=== PATIENT | male | born 1965 | race Caucasian/White ===

== ENCOUNTER 2018-09-24 08:46 | Outpatient (CLI) | payer MEDICAID ==
[2018-09-24 14:42] LABS: BASOPHILS # (AUTO) 0.1 10^3/uL (0.0-0.1); BASOPHILS % (AUTO) 1.6 %; EOSINOPHILS # (AUTO) 0.3 10^3/uL (0.0-0.7); EOSINOPHILS % (AUTO) 3.3 %; HGB - HEMOGLOBIN 16.6 g/dL (14.0-18.0); LYMPHOCYTES # (AUTO) 2.5 10^3/uL (1.5-3.5); MEAN CORPUSCULAR HEMOGLOBIN 28.6 pg (27.0-31.0); MEAN CORPUSCULAR VOLUME 81.6 fL (80.0-94.0); MONOCYTES # (AUTO) 0.7 10^3/uL (0.0-1.0); NEUTROPHILS # (AUTO) 5.2 10^3/uL (1.5-6.6); NEUTROPHILS % (AUTO) 59.1 %; PLT - PLATELET COUNT 290 10^3/uL (130-450); RED BLOOD COUNT 5.82 10^6/uL (4.70-6.10); WHITE BLOOD COUNT 8.8 x10^3/uL (4.8-10.8)
[2018-09-24 15:08] LABS: CALCIUM 8.5 mg/dL (8.5-10.3); CARBON DIOXIDE - CO2 24 mmol/L (21-32); CHLORIDE 103 mmol/L (101-111); GLUCOSE 208 mg/dL (70-100); SODIUM 137 mmol/L (135-145)
[2018-09-24 15:30] LABS: THYROID STIMULATING HORMONE 2.54 uIU/mL (0.34-5.60)
[2018-09-24 15:42] LABS: FOLATE 11.07 ng/mL (5.90 - >24.8)
[2018-09-24 16:24] LABS: ALBUMIN/GLOBULIN RATIO 1.1 (1.0-2.2); ALKALINE PHOSPHATASE 77 IU/L (42-121); ALT ALANINE AMINOTRANSFERASE 67 IU/L (10-60); AST ASPARTATE AMINOTRANSFERASE 37 IU/L (10-42); BILIRUBIN,TOTAL 0.6 mg/dL (0.2-1.0); BUN - BLOOD UREA NITROGEN 14 mg/dL (6-20); CHOL/HDL RATIO 9.2 (<5.0); CHOLESTEROL 267 mg/dL; CREATININE 0.9 mg/dL (0.6-1.2); GFR - MDRD 88 (>89); HDL CHOLESTEROL 29 mg/dL; TOTAL PROTEIN 7.8 g/dL (6.7-8.2)
[2018-09-24 17:12] LABS: LDL CHOLESTEROL,DIRECT 145 mg/dL
== END 2018-09-24 23:59 | disposition home or self-care (01) ==
LOC: LAB.N 08:46
PROVIDERS: ATTEND Nurse Practitioner
DX: I10 Essential (primary) hypertension (principal); E55.9 Vitamin D deficiency, unspecified; R53.83 Other fatigue
CPT/HCPCS: 36415; 80050; 80061; 82306; 82607; 82746; 83721

== ENCOUNTER 2019-03-31 22:37 | Emergency (ER) | payer MEDICAID ==
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
[2019-03-31] MEDS ORDERED: ACETAMINOPHEN 325 MG TABLET PO STA (23:06)
--- NOTE | 2019-04-01 00:08 | XRAY Report ---
Reason: pain and swelling from fall Procedure Date: 03/31/2019 Accession Number: [id number] / [id number] Procedure: XR - Elbow 3 View RT CPT Code: FULL RESULT: EXAM: RIGHT ELBOW RADIOGRAPHY EXAM DATE: 03/31/2019 11:52 PM. CLINICAL HISTORY: Pain and swelling from fall. COMPARISON: None. TECHNIQUE: 3 views. FINDINGS: Bones: There is an intra-articular fracture involving the olecranon process with up to 2.6 cm of displacement of the proximal fracture fragment. Additional nondisplaced fracture components are seen extending into the ulnar shaft. There is also a nondisplaced intra-articular radial head fracture. Joints: No subluxation. Joint effusion present. Soft Tissues: Soft tissue swelling posteriorly. IMPRESSION: 1. Nondisplaced intra-articular radial head fracture. 2. Intra-articular olecranon process fracture with up to 2.6 cm of fracture fragment separation. RADIA
[2019-04-01] MEDS ORDERED: SODIUM CHLORIDE 0.9% 1,000 ML IV ONE (00:25)
[2019-04-01] MEDS ORDERED: ONDANSETRON 4 MG/2 ML VIAL IVP STA (00:50)
[2019-04-01] MEDS ORDERED: HYDROmorphone 1 MG/ML CARPUJECT IVP STA (00:50)
[2019-04-01 03:49] VITALS: BP 163/100
== END 2019-04-01 03:21 | disposition home or self-care (01) ==
LOC: ED 22:37
DX: S52.031A Displaced fracture of olecranon process with intraarticular extension of right ulna, initial encounter for closed fracture (principal); S52.124A Nondisplaced fracture of head of right radius, initial encounter for closed fracture; S80.211A Abrasion, right knee, initial encounter; S80.01XA Contusion of right knee, initial encounter; S50.812A Abrasion of left forearm, initial encounter; V18.0XXA Pedal cycle driver injured in noncollision transport accident in nontraffic accident, initial encounter; Y93.55 Activity, bike riding; Y92.830 Public park as the place of occurrence of the external cause; I25.10 Atherosclerotic heart disease of native coronary artery without angina pectoris; I10 Essential (primary) hypertension
CPT/HCPCS: 29105; 73080; 96361; 96374; 99283; 99284; A9270; J1170; 80048; 85025

== ENCOUNTER 2019-04-13 10:24 | Outpatient (CLI) | payer MEDICAID | END 2019-04-13 10:25 | disposition short-term general hospital (02) | LOC: EMS 10:24 | PROVIDERS: ATTEND Surgery | DX: R42 Dizziness and giddiness (principal) | CPT/HCPCS: A0425; A0429; A0888; A0999 ==

== ENCOUNTER 2019-04-21 10:38 | Outpatient (CLI) | payer MEDICAID ==
--- NOTE | 2019-04-22 12:13 | CT Report ---
Reason: DISPLACED FRACTURE OF HEAD OF RIGHT RADIUS, DISPLA Procedure Date: 04/21/2019 Accession Number: [id number] / [id number] Procedure: CT - UPPER EXTREMITY WO - RT CPT Code: FULL RESULT: EXAM: RIGHT ELBOW CT WITHOUT CONTRAST EXAM DATE: 04/21/2019 11:10 AM. CLINICAL HISTORY: Displaced fracture of head of right radius. COMPARISON: ELBOW 3 VIEW RT 03/31/2019 11:35 PM. TECHNIQUE: Thin-section axial images were acquired of the elbow without contrast. Post-processing: Coronal and sagittal reformats. Other: None. In accordance with CT protocol optimization, one or more of the following dose reduction techniques were utilized for this exam: automated exposure control, adjustment of mA and/or KV based on patient size, or use of iterative reconstructive technique. FINDINGS: Bones and articular surfaces: Comminuted intra-articular fracture of the radial head. A large segment of the central and posterior articular surface of the radial head is displaced posteriorly. 2 main fragments posterior to the capitellum appear to represent displaced articular surface fragments. The largest measures approximately 10 x 10 x 2.5 mm. The smaller fragment approximately 4.5 x 6.0 x 2 mm. Otherwise radial head appears normally aligned with the capitellum. Comminuted fracture of the proximal ulna. The proximal aspect of the olecranon process is fractured and displaced proximally approximately 2.7 cm. Additional nondisplaced oblique fracture courses distally from the olecranon fracture exiting the anterior cortex of the proximal ulna approximately 3.3 cm distal to the tip of the coronoid process. Large elbow joint effusion. Musculotendinous structures: Visualized musculotendinous structures appear grossly intact. No muscle atrophy or fatty replacement. IMPRESSION: 1. Comminuted intra-articular radial head fracture with posterior displacement of large segments of the articular surface. 2. Comminuted fracture of the proximal ulna with proximal displacement of the olecranon fragment approximately 2.7 cm. RADIA
== END 2019-04-21 10:39 | disposition home or self-care (01) ==
LOC: DI 10:38
PROVIDERS: ATTEND Orthopaedic Surgery Sports Medicine
DX: S52.121A Displaced fracture of head of right radius, initial encounter for closed fracture (principal); S52.021A Displaced fracture of olecranon process without intraarticular extension of right ulna, initial encounter for closed fracture

== ENCOUNTER 2019-09-06 08:00 | Outpatient (CLI) | payer MEDICAID ==
[2019-09-06 12:51] LABS: CALCIUM 8.8 mg/dL (8.5-10.3); CREATININE 1.1 mg/dL (0.6-1.2)
[2019-09-06 13:04] LABS: CREATININE,URINE 331.2 mg/dL; MICROALBUM/CREATININE RATIO,UR 160.9 ug/mg (<30.0); MICROALBUMIN,URINE 53.3 mg/dL (0-300.0)
[2019-09-06 13:11] LABS: HB2 TOTAL 15.8 g/dL; HEMOGLOBIN A1C 0.92 g/dL; HEMOGLOBIN A1C % 7.5 % (4.6-6.2)
== END 2019-09-06 23:59 ==
LOC: LAB.N 08:00
PROVIDERS: ATTEND Family Medicine
DX: E11.9 Type 2 diabetes mellitus without complications (principal)
CPT/HCPCS: 36415; 80048; 82043; 82570; 83036

== ENCOUNTER 2019-10-03 13:46 | Outpatient (CLI) | payer MEDICAID ==
--- NOTE | 2019-10-03 16:09 | SLEEP CARE CONSULTATION ---
Information from patient questionnaire entered by Alyssa Rogers. I have reviewed and concur with the information entered by Alyssa Rogers. This document represents the service I personally performed and the decisions made by me, Ira Munoz MD, [facility]. History of Present Illness Reason for Visit: New patient Chief Complaint: reports: Fatigue, Other (checking to see if sleep is ok) Duration of Symptoms: on/off for a year or so Usual bedtime: 2300 Time it takes to fall asleep: 20-30 minutes Snores at night: Yes (sometimes) Observed to quit breathing while asleep: No Sleeps alone due to snoring: No Number of times waking at night: 1 Reasons for waking at night: reports: Bathroom Toss, Turn, or Twitch while sleeping: No Recalls having dreams: Yes Usually gets out of bed at: 0700 Feels refreshed in the morning: Yes Morning headache: No Sleepy or fatigued during the day: No (once in a while) Ever fallen asleep while driving: No Takes day naps: Yes Dreams during day naps: Yes Prior sleep studies: No Additional HPI information: I had the pleasure of seeing Mr. Vences today regarding the possibility of him having a sleep disorder. As you know, he is a 54 year old gentleman who complains of fatigue for about a year. The patient tells me that he normally goes to bed around 11 pm, and it takes him approximately 20 - 30 minutes to fall asleep. He snores occasionally. He has never been observed to stop breathing in his sleep. However, he sleeps alone. He can recall waking up on the average of 1 time during the night. Most of the time he wakes up because of having to use the bathroom. He has never awakened occasionally because of his own snoring, choking, or having to gasp for air. There is not a lot of tossing and turning in his sleep. No somniloquy (sleep talking) or somnambulism (sleep walking). Generally he can recall having dreams. In the morning he usually gets up out of the bed around 7 a.m. feeling refreshed and rested. He usually does not have a morning headache. During the day he does not feel sleepy. His score on [place] Sleepiness Scale is 11 out of 24. He has never fallen asleep while driving nor has had any accident due to sleepiness. He usually takes naps during the day. Upon falling asleep during the day he reports having dreams. He has never had sleep paralysis, experienced cataplexy or symptoms of restless leg syndrome. He reports having impaired concentration during the day. Subjective Initial [place] Sleepiness Scale score: 11 Past Medical History Past Medical History: reports: Hypertension, Coronary Heart Disease (s/p CABG), Other (double bypass may 2019) Social History The patient is not employed. Patient is Single and lives in [place]. Have you smoked in the past 12 months: No Alcohol use: Yes Alcohol amount and frequency: 1-2 Sat-Sun Caffeine use: Yes Caffeine amount and frequency: 1-2 cups/day Family History Family history of sleep disordered breathing: No Allergies and Home Medications Drug allergies reviewed: Yes Home medication list reviewed: Yes Allergy and home medication list: Meds: carvedilol, amlodipine, metformin, aspirin Allergies: penicillins Review of Systems Weight gain over past 5 years: 20 Weight loss over past 5 years: 20 Cardiovascular: reports: high blood pressure, have to sleep sitting up Respiratory: reports: shortness of breath Gastrointestinal: reports: heartburn, diarrhea Urinary: denies: incontinence, frequency, urgency, impotence, other Neurological: reports: headaches, head trauma, disorientation Psychiatric: reports: Attention Deficit Hyperactivity, anxiety, depression, mood disorder Ear/Nose/Throat: reports: injury to nose, wisdom teeth removed Endocrine: denies: thyroid disease, history of goiter, sluggishness, too hot or cold, excessive thirst, increased appetite, increased urination, unexplained weakness, other Musculoskeletal: reports: joint pain, neck pain, back pain, muscle pain or cramping, mobility problems Immunologic: reports: sneezing, rash, itching Physical Exam Vital signs obtained and entered by: Dr. Munoz Blood Pressure: 160/100 Cuff size: regular Heart Rate: 73 O2 Saturation: 99 Height: 5 ft 7 in Weight: 196 lb Body Mass Index: 30.7 BMI Classification: Obesity Class 1 Neck circumference: 16.5 Mood/affect: normal HEENT: No craniofacial malformation Nostrils: patent to airflow Turbinates: normal Septum: deviated right Mouth and throat: narrow oropharynx Soft palate: long Hard palate: normal Uvula: normal Uvula visualization: 50% Mallampati Class II Tongue: normal in size Tonsils: small Chin and jaw: normal size and position Neck: normal w/o lymphadenopathy or thyromegaly Heart: regular rate and rhythm Lungs: clear bilaterally Abdomen: soft, non-tender Extremities: no edema or clubbing Neurologic: intact, no focal deficits Impression and Plan IMPRESSION: 1. Obstructive Sleep Apnea-Hypopnea Syndrome, as suggested by history of loud snoring and fatigue. Narrow oropharynx and obesity are common predisposing factors for obstructive sleep apnea-hypopnea syndrome. The patient also has hypertension and ischemic heart disease, both of which can be worsened by untreated obstructive sleep apnea-hypopnea. Pathophysiology of sleep-disordered breathing was discussed. I recommend proceeding to polysomnography to confirm the diagnosis and to assess severity. If he has significant sleep disordered breathing, a manual CPAP titration study will also be performed to find the optimal treatment pressure. I informed the patient of what the sleep studies involve and after some discussion, he agreed to proceed. Plan: 1. Schedule polysomnography + manual CPAP titration study 2. Avoid long distance driving or when feeling sleepy. 3. Avoid alcohol, sedative and muscle relaxant around bedtime. 4. Attempt to lose weight. 5. Return in 1 to 2 weeks after the study to discuss results and initiate therapy. I spent 100% of this visit face to face with the patient with greater than 50% of this was spent time counseling the patient and coordination of care.
[2019-10-03 16:10] VITALS: BP 160/100
== END 2019-10-03 13:47 | disposition home or self-care (01) ==
LOC: SC 13:46
PROVIDERS: ATTEND Internal Medicine Pulmonary Disease
DX: R06.83 Snoring (principal); R53.83 Other fatigue; I25.9 Chronic ischemic heart disease, unspecified; I10 Essential (primary) hypertension; E66.9 Obesity, unspecified; Z68.30 Body mass index [BMI] 30.0-30.9, adult
CPT/HCPCS: 99203; 99212

== ENCOUNTER 2019-10-12 20:42 | Outpatient (CLI) | payer MEDICAID | END 2019-10-12 20:43 | disposition home or self-care (01) | LOC: SC 20:42 | PROVIDERS: ATTEND Internal Medicine Pulmonary Disease | DX: G47.33 Obstructive sleep apnea (adult) (pediatric) (principal); G47.61 Periodic limb movement disorder; E66.9 Obesity, unspecified; Z68.30 Body mass index [BMI] 30.0-30.9, adult | CPT/HCPCS: 95810 ==

== ENCOUNTER 2019-11-07 13:07 | Outpatient (CLI) | payer MEDICAID ==
--- NOTE | 2019-11-07 13:47 | SLEEP CARE CONSULTATION ---
Information from patient questionnaire entered by Alyssa Rogers. I have reviewed and concur with the information entered by Alyssa Rogers. This document represents the service I personally performed and the decisions made by me, Ira Munoz MD, [facility]. History of Present Illness Initial [place] Sleepiness Scale score: 11 Current [place] Sleepiness Scale score: 9 Additional HPI information: HPI: Mr. Vences returned for follow up of the sleep study he had on 10/12/2019. The polysomnography showed that the patient had poor sleep efficiency due to two prolonged awakenings after the sleep onset. The sleep architecture was abnormal for sleep fragmentation and reduced amount of time spent in slow wave sleep (N3). Respiratory monitoring showed mild obstructive sleep apnea-hypopnea (AHI = 6.2) associated with frequent arousals, oxyhemoglobin desaturation and mild hypoxia (andrés oxygen saturation of 87%). The patient did not sleep supine during this study (supine AHI = 0.0; non-supine = 6.22). Snore was light in intensity. There was moderate periodic leg movement of sleep not contributing to the sleep fragmentation. Cardiac rhythm was normal sinus rhythm without significant arrhythmia. No abnormal behavior (parasomnia) observed during the night. The patient was informed of these findings. I explained to him the pathophysiology behind obstructive sleep apnea. We then spent quite a bit of time discussing different treatment options. For mild obstructive sleep apnea, surgery and oral appliance are alternatives to nasal CPAP therapy but in moderate or severe cases, nasal CPAP is the most effective and reliable treatment. Weight loss in an obese individual is strongly recommended. After some discussion, he opted to go with the nasal CPAP therapy. I explained to him how CPAP machine works and what to expect when using the machine. He is encouraged to use CPAP every night especially in the first 2 to 3 nights in order to get used to it. He should call his CPAP supplier or me to discuss any mechanical problem that may occur. If he snores or feels like he is not getting enough air from the machine, he should notify me and I will increase the pressure. Allergies and Home Medications Drug allergies reviewed: Yes Home medication list reviewed: Yes Review of Systems Review of systems same as previous: Yes Physical Exam Height: 5 ft 7 in Weight: 199 lb Body Mass Index: 31.1 BMI Classification: Obese Impression and Plan IMPRESSION: 1. Obstructive Sleep Apnea-Hypopnea Syndrome, mild, associated with mild hypoxemia and sleep fragmentation. Possibly, this is the cause of the patients symptoms of unrefreshed sleep, and excessive daytime sleepiness. As mentioned above, the patient will be started on an autoCPAP set at 5 - 15 cmH2O. Depending on his response and compliance he may be brought back for an overnight CPAP titration study. PLAN: 1. Prescription made for an autoCPAP, heated humidifier, and related supplies. 2. Attempt to lose weight and avoid alcohol consumption near bedtime. 3. The patient is again cautioned about driving until his sleepiness completely resolves on the CPAP therapy. I spent 100% of this visit face to face with the patient with greater than 50% of this was spent time counseling the patient and coordination of care.
== END 2019-11-07 13:08 | disposition home or self-care (01) ==
LOC: SC 13:07
PROVIDERS: ATTEND Internal Medicine Pulmonary Disease
DX: G47.33 Obstructive sleep apnea (adult) (pediatric) (principal); E66.9 Obesity, unspecified; Z68.31 Body mass index [BMI] 31.0-31.9, adult
CPT/HCPCS: 99212; 99213

== ENCOUNTER 2020-03-13 13:47 | Outpatient (CLI) | payer MEDICAID ==
[2020-03-13 18:29] LABS: BASOPHILS # (AUTO) 0.1 10^3/uL (0.0-0.1); BASOPHILS % (AUTO) 1.1 %; EOSINOPHILS # (AUTO) 0.3 10^3/uL (0.0-0.7); EOSINOPHILS % (AUTO) 2.4 %; HGB - HEMOGLOBIN 14.7 g/dL (14.0-18.0); LYMPHOCYTES # (AUTO) 2.8 10^3/uL (1.5-3.5); LYMPHOCYTES % (AUTO) 26.3 %; MEAN CORPUSCULAR HEMOGLOBIN 27.6 pg (27.0-31.0); MEAN CORPUSCULAR HGB CONC 32.5 g/dL (32.0-36.0); MEAN CORPUSCULAR VOLUME 84.8 fL (80.0-94.0); MEAN PLATELET VOLUME 9.9 fL (7.4-11.4); MONOCYTES # (AUTO) 0.9 10^3/uL (0.0-1.0); MONOCYTES % (AUTO) 8.3 %; NEUTROPHILS # (AUTO) 6.5 10^3/uL (1.5-6.6); NEUTROPHILS % (AUTO) 61.5 %; PLT - PLATELET COUNT 302 10^3/uL (130-450); RED BLOOD COUNT 5.33 10^6/uL (4.70-6.10); RED CELL DISTRIBUTION WIDTH 13.8 % (12.0-15.0); WHITE BLOOD COUNT 10.6 x10^3/uL (4.8-10.8)
[2020-03-13 18:58] LABS: HB2 TOTAL 15.3 g/dL; HEMOGLOBIN A1C 0.96 g/dL; HEMOGLOBIN A1C % 7.9 % (4.6-6.2)
[2020-03-13 19:01] LABS: ALBUMIN 4.2 g/dL (3.2-5.5); ALBUMIN/GLOBULIN RATIO 1.4 (1.0-2.2); ALKALINE PHOSPHATASE 58 IU/L (42-121); ALT ALANINE AMINOTRANSFERASE 44 IU/L (10-60); AST ASPARTATE AMINOTRANSFERASE 27 IU/L (10-42); BILIRUBIN,TOTAL 0.4 mg/dL (0.2-1.0); BUN - BLOOD UREA NITROGEN 23 mg/dL (6-20); CARBON DIOXIDE - CO2 26 mmol/L (21-32); CHLORIDE 101 mmol/L (101-111); CHOL/HDL RATIO 7.9 (<5.0); CHOLESTEROL 238 mg/dL; CREATININE 1.3 mg/dL (0.6-1.2); GLUCOSE 184 mg/dL (70-100); HDL CHOLESTEROL 30 mg/dL; SODIUM 136 mmol/L (135-145); TOTAL PROTEIN 7.2 g/dL (6.7-8.2)
[2020-03-13 19:38] LABS: CREATININE,URINE 274.5 mg/dL; MICROALBUM/CREATININE RATIO,UR 104.9 ug/mg (<30.0); MICROALBUMIN,URINE 28.8 mg/dL (0-300.0)
[2020-03-13 19:40] LABS: LDL CHOLESTEROL,DIRECT 127 mg/dL; LDLD/HDL RATIO 4.2 (<3.6)
== END 2020-03-13 23:59 | disposition home or self-care (01) ==
LOC: LAB.WCP 13:47
PROVIDERS: ATTEND Family Medicine
DX: E11.9 Type 2 diabetes mellitus without complications (principal); I10 Essential (primary) hypertension; E78.2 Mixed hyperlipidemia
CPT/HCPCS: 36415; 80053; 80061; 82043; 82570; 83036; 83721; 85025

== ENCOUNTER 2020-04-27 14:00 | Outpatient (CLI) | payer MEDICAID | END 2020-04-27 23:59 | disposition home or self-care (01) | LOC: LAB.R 14:00 | PROVIDERS: ATTEND Family Medicine | DX: R32 Unspecified urinary incontinence (principal) | CPT/HCPCS: 87086 ==

== ENCOUNTER 2020-10-05 11:39 | Outpatient (CLI) | payer MEDICAID ==
[2020-10-05 18:48] LABS: BASOPHILS # (AUTO) 0.1 10^3/uL (0.0-0.1); BASOPHILS % (AUTO) 1.4 %; EOSINOPHILS # (AUTO) 0.3 10^3/uL (0.0-0.7); EOSINOPHILS % (AUTO) 3.3 %; HGB - HEMOGLOBIN 16.6 g/dL (14.0-18.0); LYMPHOCYTES # (AUTO) 2.6 10^3/uL (1.5-3.5); LYMPHOCYTES % (AUTO) 30.3 %; MEAN CORPUSCULAR HEMOGLOBIN 28.5 pg (27.0-31.0); MEAN CORPUSCULAR HGB CONC 33.7 g/dL (32.0-36.0); MEAN CORPUSCULAR VOLUME 84.4 fL (80.0-94.0); MEAN PLATELET VOLUME 10.1 fL (7.4-11.4); MONOCYTES # (AUTO) 0.7 10^3/uL (0.0-1.0); NEUTROPHILS # (AUTO) 4.8 10^3/uL (1.5-6.6); NEUTROPHILS % (AUTO) 56.5 %; PLT - PLATELET COUNT 272 10^3/uL (130-450); RED BLOOD COUNT 5.83 10^6/uL (4.70-6.10); RED CELL DISTRIBUTION WIDTH 13.5 % (12.0-15.0); WHITE BLOOD COUNT 8.5 x10^3/uL (4.8-10.8)
[2020-10-05 19:05] LABS: ALBUMIN/GLOBULIN RATIO 1.1 (1.0-2.2); ALKALINE PHOSPHATASE 69 IU/L (42-121); ALT ALANINE AMINOTRANSFERASE 108 IU/L (10-60); AST ASPARTATE AMINOTRANSFERASE 65 IU/L (10-42); BILIRUBIN,TOTAL 0.6 mg/dL (0.2-1.0); BUN - BLOOD UREA NITROGEN 17 mg/dL (6-20); CARBON DIOXIDE - CO2 24 mmol/L (21-32); CHLORIDE 99 mmol/L (101-111); CHOL/HDL RATIO 10.1 (<5.0); CHOLESTEROL 292 mg/dL; CREATININE 1.2 mg/dL (0.6-1.2); GLUCOSE 332 mg/dL (70-100); HDL CHOLESTEROL 29 mg/dL; SODIUM 135 mmol/L (135-145); TOTAL PROTEIN 7.5 g/dL (6.7-8.2)
[2020-10-05 19:37] LABS: CREATININE,URINE 234.6 mg/dL; MICROALBUM/CREATININE RATIO,UR 274.1 ug/mg (<30.0); MICROALBUMIN,URINE 64.3 mg/dL (0-300.0)
[2020-10-05 19:40] LABS: LDL CHOLESTEROL,DIRECT 114 mg/dL; LDLD/HDL RATIO 3.9 (<3.6)
[2020-10-05 20:17] LABS: HEMOGLOBIN A1c% 9.9 % (4.27-6.07)
[2020-10-06 13:37] LABS: HEPATITIS C ANTIBODY NON-REACTIVE (NON-REACTIVE)
== END 2020-10-05 11:40 | disposition home or self-care (01) ==
LOC: LAB.N 11:39
PROVIDERS: ATTEND Internal Medicine
DX: E11.9 Type 2 diabetes mellitus without complications (principal); Z80.42 Family history of malignant neoplasm of prostate; Z11.59 Encounter for screening for other viral diseases; R32 Unspecified urinary incontinence
CPT/HCPCS: 36415; 80053; 80061; 82043; 82274; 82570; 83036; 83721; 84153; 84443; 85025; 86803; 87086

== ENCOUNTER 2021-06-06 08:00 | Outpatient (CLI) | payer MEDICAID ==
[2021-06-06 12:28] LABS: BASOPHILS # (AUTO) 0.1 10^3/uL (0.0-0.1); BASOPHILS % (AUTO) 1.1 %; EOSINOPHILS # (AUTO) 0.3 10^3/uL (0.0-0.7); EOSINOPHILS % (AUTO) 3.5 %; HCT - HEMATOCRIT 51.9 % (42.0-52.0); HGB - HEMOGLOBIN 17.5 g/dL (14.0-18.0); LYMPHOCYTES # (AUTO) 2.5 10^3/uL (1.5-3.5); LYMPHOCYTES % (AUTO) 30.5 %; MEAN CORPUSCULAR HEMOGLOBIN 28.5 pg (27.0-31.0); MEAN CORPUSCULAR HGB CONC 33.7 g/dL (32.0-36.0); MEAN CORPUSCULAR VOLUME 84.7 fL (80.0-94.0); MEAN PLATELET VOLUME 9.8 fL (7.4-11.4); MONOCYTES # (AUTO) 0.6 10^3/uL (0.0-1.0); MONOCYTES % (AUTO) 7.3 %; NEUTROPHILS # (AUTO) 4.6 10^3/uL (1.5-6.6); NEUTROPHILS % (AUTO) 57.1 %; PLT - PLATELET COUNT 274 10^3/uL (130-450); RED BLOOD COUNT 6.13 10^6/uL (4.70-6.10); RED CELL DISTRIBUTION WIDTH 13.3 % (12.0-15.0)
[2021-06-06 12:41] LABS: ALBUMIN 4.3 g/dL (3.2-5.5); ALBUMIN/GLOBULIN RATIO 1.1 (1.0-2.2); ALKALINE PHOSPHATASE 79 IU/L (42-121); ALT ALANINE AMINOTRANSFERASE 67 IU/L (10-60); AST ASPARTATE AMINOTRANSFERASE 38 IU/L (10-42); BILIRUBIN,TOTAL 0.9 mg/dL (0.2-1.0); BUN - BLOOD UREA NITROGEN 18 mg/dL (6-20); CARBON DIOXIDE - CO2 26 mmol/L (21-32); CHLORIDE 100 mmol/L (101-111); CHOL/HDL RATIO 9.5 (<5.0); CHOLESTEROL 303 mg/dL; ESTIMATED AVERAGE GLUCOSE 263 mg/dL (70-100); GFR - MDRD 77 (>89); GLUCOSE 276 mg/dL (70-100); HDL CHOLESTEROL 32 mg/dL; HEMOGLOBIN A1c% 10.8 % (4.27-6.07); POTASSIUM 3.8 mmol/L (3.5-5.0); SODIUM 136 mmol/L (135-145); TOTAL PROTEIN 8.2 g/dL (6.7-8.2); TRIGLYCERIDES 672 mg/dL
[2021-06-06 12:46] LABS: THYROID STIMULATING HORMONE 1.32 uIU/mL (0.34-5.60)
[2021-06-06 12:51] LABS: CREATININE,URINE 128.8 mg/dL; MICROALBUM/CREATININE RATIO,UR 394.4 ug/mg (<30.0); MICROALBUMIN,URINE 50.8 mg/dL (0-300.0)
[2021-06-06 13:29] LABS: LDL CHOLESTEROL,DIRECT 125 mg/dL; LDLD/HDL RATIO 3.9 (<3.6)
== END 2021-06-06 23:59 | disposition home or self-care (01) ==
LOC: LAB.WCP 08:00
PROVIDERS: ATTEND Internal Medicine
DX: E11.9 Type 2 diabetes mellitus without complications (principal); E78.2 Mixed hyperlipidemia
CPT/HCPCS: 36415; 80053; 80061; 82043; 82570; 83036; 83721; 84443; 85025

== ENCOUNTER 2021-11-06 13:32 | Emergency (ER) | payer MEDICAID ==
[2021-11-06 13:44] VITALS: BP 193/104
[2021-11-06] MEDS ORDERED: HYDROcod/ACETAM 5/325 MG TABLET PO STA (15:46)
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
--- NOTE | 2021-11-06 16:31 | XRAY Report ---
PROCEDURE: Sacrum/Coccyx INDICATIONS: fall, coccyx pain TECHNIQUE: 3 views of the sacrum and coccyx acquired. COMPARISON: None. FINDINGS: BONES: Diffuse osteopenia. The sacroiliac joints are maintained. No widening of the pubic symphysis. The sacral arcuate lines are maintained. No acute, displaced frac ture or dislocation. SOFT TISSUES: No focal abnormality. IMPRESSION: 1.No acute osseous abnormality. Reviewed by: Ronny Wright MD on 11/06/2021 4:29 PM PST Approved by: Ronny Wright MD on 11/06/2021 4:29 PM PST Station ID: [id number]
== END 2021-11-06 17:07 | disposition home or self-care (01) ==
LOC: ED 13:32
DX: S30.0XXA Contusion of lower back and pelvis, initial encounter (principal); W19.XXXA Unspecified fall, initial encounter; Y92.811 Bus as the place of occurrence of the external cause
CPT/HCPCS: 72220; 99282; 99283; A9270

== ENCOUNTER 2022-07-03 08:00 | Outpatient (CLI) | payer MEDICAID ==
--- NOTE | 2022-07-03 15:41 | XRAY Report ---
PROCEDURE: Elbow 3 View RT INDICATIONS: RIGHT ELBOW PAIN TECHNIQUE: 3 views of the elbow were acquired. COMPARISON: X-ray elbow 03/31/2019 FINDINGS: Bones: There is an old olecranon fracture. There is an osseous fragment identified at the level of th e humeral condyles. This appears likely related to migration of prior fragment. Degenerative changes are overall present at the elbow most notably at the radial head as well as lateral humeral condyle. No suspicious bony lesions. Soft tissues: No elbow joint effusion. No suspicious soft tissue calcifications. IMPRESSION: Sequela of old olecranon fracture. Degenerative changes are present at the elbow including small fragmentation at the radius and lateral humeral condyle. While these are suspected to be degenerative, small areas of underlying subacute av ulsion injury cannot be excluded and recommend correlation of point tenderness. As clinically indicat ed, short interval x-ray or CT follow-up is recommended. Reviewed by: Shira Feng MD on 07/03/2022 3:39 PM PDT Approved by: Shira Feng MD on 07/03/2022 3:39 PM PDT Station ID: [id number]
== END 2022-07-03 23:59 | disposition home or self-care (01) ==
LOC: DI.WOS 08:00
PROVIDERS: ATTEND Physician Assistant
DX: M19.021 Primary osteoarthritis, right elbow (principal)